=== PATIENT | female | born 1980 | race Two or more races ===

== ENCOUNTER 2025-06-28 05:30 | Day surgery (SDC) | payer OTHER ==
[2025-06-22 14:07] VITALS: BP 112/75
[2025-06-22 14:26] LABS: URINE APPEARANCE Clear; URINE BILIRRUBIN Negative (NEGATIVE); URINE BLOOD Moderate; URINE COLOR Yellow; URINE GLUCOSE Negative (NEGATIVE); URINE KETONE Negative (NEGATIVE); URINE LEUKOCYTE Negative; URINE NITRATE Negative; URINE PROTEIN Negative (NEGATIVE); URINE UROBILINOGEN 0.2 E.U./dl
[2025-06-22 14:28] LABS: BASO % 0.9 % (0.1-1.2); EOS # 0.14 (0.04-0.54); EOS % 2.1 % (0.7-7.0); LYMPH # 1.41 (1.18-3.74); LYMPH % 21.2 % (19.3-53.1); MEAN PLATELET VOLUME 10.60 fl (9.4-12.4); MONO # 0.38 (0.24-0.82); MONO % 5.7 % (4.7-12.5); NEUT # 4.60 (1.56-6.13); NEUT % 69.0 % (34.0-71.1); RED CELL DISTRIBUTION WIDTH 14.7 % (11.6-14.4)
[2025-06-22 14:29] LABS: URINE BACTERIA 20.3 uL (0.0-1933); URINE EPITHELIAL CELLS 2.1 uL (0.0-38.8); URINE RBC 35.7 uL (0.0-20.8)
[2025-06-22 14:35] LABS: URINE CAST 0.00 uL (0.0-1.40); URINE WBC 1.6 uL (0.0-23.2)
[2025-06-22 14:54] LABS: ALT/SGPT 33.0 U/L (12-78); AST/SGOT 18.0 U/L (15-37); BILIRUBIN TOTAL 0.3 mg/dL (0.3-1.2); BUN CREA RATIO 28.0 (7.0-25.0); CREATININE SERUM 0.64 mg/dL (0.55-1.02); GFR 101.28; GLOBULINA 3.2 G/DL (2.4-3.5); GLUCOSE FASTING 91.0 mg/dL (65-100); OSMOLALITY SERUM 283.0 MOSM/KG (275-295)
[2025-06-22 14:58] LABS: INR 0.98
[~2025-06-28] VITALS: Ht 160 cm; Wt 74.8 kg
[2025-06-28] MEDS ORDERED: CEFAZOLIN SODIUM 1,000 MG VIAL ONE (07:19)
[2025-06-28] MEDS ORDERED: CHLORHEXIDINE GLUCONATE 120 ML BOTTLE TOP ONE (07:30)
[2025-06-28] MEDS ORDERED: POVIDONE-IODINE 118 ML BOTT TOP ONE (07:31)
[2025-06-28] MEDS ORDERED: DOXYCYCLINE HY100 M2 PO (08:52)
[2025-06-28] MEDS ORDERED: IBU600 MG PO (08:53)
== END 2025-06-28 14:05 | disposition home or self-care (01) ==
LOC: CIR.AMB 05:30
PROVIDERS: ATTEND Obstetrics & Gynecology
DX: D25.0 Submucous leiomyoma of uterus (principal); N84.0 Polyp of corpus uteri